=== PATIENT | male | born 1940 | race Caucasian/White ===

== ENCOUNTER → 2018-08-13 | Outpatient (CLI) | payer OTHER, MEDICARE ==
[~2018-08-13] MED LIST: IOPAMIDOL (ISOVUE-300) 100 ML BTL ONE
== END ==
LOC: FIMAGING 09:39
PROVIDERS: ATTEND Physician Assistant Medical
DX: R31.0 Gross hematuria (principal); N40.0 Benign prostatic hyperplasia without lower urinary tract symptoms
CPT/HCPCS: 74178; Q9967; 82565-PO

== ENCOUNTER 2018-10-01 00:28 | Observation (INO) | payer OTHER, MEDICARE ==
[2018-10-01] MEDS ORDERED: ONDANSETRON 4 MG/2 ML VIAL IVP ONE (00:51)
[2018-10-01] MEDS ORDERED: fentaNYL 100 MCG/2 ML INJ IVP ONE ×2 (00:51→01:38)
[2018-10-01] MEDS ORDERED: NS 1,000 ML IV ONE (00:51)
--- NOTE | 2018-10-01 00:57 | EDPHY ---
H & P Stated Complaint: LLQ abd pain with vomiting since 1600 Time Seen by Provider: 10/01/18 00:39 HPI/ROS: Chief Complaint: Abdominal pain HPI: 78-year-old male began having worsening abdominal pain starting at 5:00 a.m. This evening. Is in his left lower abdomen. Some nausea and vomiting. Some loose stools and constipation. Last normal bowel movement was 2 days ago. No blood or dark black. No blood in his vomit. No fevers or chills. No urinary urgency or frequency. He did have a cystoscopy performed a couple of weeks ago. Does not have a history of similar pain in the past. No abdominal surgeries. Has a history of hyperlipidemia, otherwise no past medical history. Pain is about a 6/10. ROS: 10 systems were reviewed and were negative except those elements noted in the HPI. PMH: Hyperlipidemia, BPH Social History: No smoking, no alcohol, no recreational drug use Family History: non-contributory Physical Exam: Gen: Awake, Alert, No Distress HEENT: Nose: no rhinorrhea Eyes: PERRLA, EOMI Mouth: Moist mucosa Neck: Supple, no JVD Chest: nontender, lungs clear to auscultation Heart: S1, S2 normal, no murmur Abd: Soft, lower abdominal tenderness, right greater than left, no guarding Back: no CVA tenderness, no midline tenderness Ext: no edema, non-tender Skin: no rash Neuro: CN II-XII intact, Sensation grossly intact, Strength 5/5 in bilateral upper and lower extremities - Personal History Current Tetanus/Diphtheria Vaccine: Unsure Current Tetanus Diphtheria and Acellular Pertussis (TDAP): Unsure - Medical/Surgical History Hx Asthma: No Hx Chronic Respiratory Disease: No Hx Diabetes: No Hx Cardiac Disease: No Hx Renal Disease: No Hx Cirrhosis: No Hx Alcoholism: No Hx HIV/AIDS: No Hx Splenectomy or Spleen Trauma: No Other PMH: left knee surgery - Social History Smoking Status: Former smoker Constitutional: Initial Vital Signs Temperature (C) 37.6 C 10/01/18 00:31 Heart Rate 64 10/01/18 00:31 Respiratory Rate 16 10/01/18 00:31 Blood Pressure 155/82 H 10/01/18 00:31 O2 Sat (%) 94 10/01/18 00:31 O2 Delivery Mode Room Air Allergies/Adverse Reactions: No Known Allergies Allergy (Verified 10/01/18 00:33) Home Medications: Medication Instructions Recorded Lipitor 10/01/18 Medical Decision Making - Diagnostics Imaging Results: CT abdomen and pelvis with contrast: Comparison: None Findings: No significant abnormality in the lung bases. Normal gallbladder. No biliary ductal dilatation. No hydronephrosis or symptomatic urinary calculus. Benign cyst in the left kidney. The solid organs and vasculature are otherwise normal. Inflammatory change medial to the cecum where there appears to be an appendicolith and a probable abnormal appendix. The base of the appendix is indistinct but may be dilated to 16 mm. No well-defined drainable abscess identified. Enlarged nodular prostate gland. There may be mild bladder wall thickening. The bladder is normal size. No bowel obstruction, free air or diverticulitis. Impression: Acute appendicitis. The margins of the appendix are indistinct. Cannot exclude early ruptured appendicitis. No definite abscess identified. ELECTRONICALLY SIGNED BY: Charles Dukes MD Oct 01, 2018 1:50:55 AM MDT ED Course/Re-evaluation: CT scan consistent with acute appendicitis. I have discussed with Dr. Rojo, general surgery. He will plan a appendectomy this morning. I have ordered surrounding Flagyl. Patient last ate at 5:00 a.m. In the afternoon. Last fluid intake about a tachypneic. He is currently comfortable. - Data Points Laboratory Results: Laboratory Results 10/01/18 00:48 10/01/18 00:48 10/01/18 10/01/18 10/01/18 01:07 01:05 00:48 WBC 9.77 10^3/uL H 10^3/uL (3.80-9.50) RBC 4.85 10^6/uL 10^6/uL (4.40-6.38) Hgb 15.3 g/dL g/dL (13.7-17.5) POC Hgb 14.6 gm/dL gm/dL (13.7-17.5) Hct 43.7 % % (40.0-51.0) POC Hct 43 % % (40-51) MCV 90.1 fL fL (81.5-99.8) MCH 31.5 pg pg (27.9-34.1) MCHC 35.0 g/dL g/dL (32.4-36.7) RDW 12.2 % % (11.5-15.2) Plt Count 160 10^3/uL 10^3/uL (150-400) MPV 11.8 fL H fL (8.7-11.7) Neut % (Auto) 82.3 % H % (39.3-74.2) Lymph % (Auto) 10.4 % L % (15.0-45.0) [place] % (Auto) 6.4 % % (4.5-13.0) Eos % (Auto) 0.2 % L % (0.6-7.6) Baso % (Auto) 0.2 % L % (0.3-1.7) Nucleat RBC Rel Count 0.0 % % (0.0-0.2) Absolute Neuts (auto) 8.03 10^3/uL H 10^3/uL (1.70-6.50) Absolute Lymphs (auto) 1.02 10^3/uL 10^3/uL (1.00-3.00) Absolute Monos (auto) 0.63 10^3/uL 10^3/uL (0.30-0.80) Absolute Eos (auto) 0.02 10^3/uL L 10^3/uL (0.03-0.40) Absolute Basos (auto) 0.02 10^3/uL 10^3/uL (0.02-0.10) Absolute Nucleated RBC 0.00 10^3/uL 10^3/uL (0-0.01) Immature Gran % 0.5 % % (0.0-1.1) Immature Gran # 0.05 10^3/uL 10^3/uL (0.00-0.10) POC Sodium 140 mEq/L mEq/L (135-145) Sodium POC Potassium 4.2 mEq/L mEq/L (3.3-5.0) Potassium POC Chloride 103 mEq/L mEq/L (97-110) Chloride Carbon Dioxide POC Total CO2 23 mEq/L mEq/L (22-31) Anion Gap POC BUN 21 mg/dL mg/dL (7-23) BUN Creatinine POC Creatinine 1.1 mg/dL mg/dL (0.7-1.3) Estimated GFR Glucose POC Glucose 127 mg/dL H mg/dL (70-100) Calcium Urine Color YELLOW Urine Appearance CLEAR Urine pH 6.0 (5.0-7.5) Ur Specific [place] 1.018 (1.002-1.030) Urine Protein NEGATIVE (NEGATIVE) Urine Ketones NEGATIVE (NEGATIVE) Urine Blood NEGATIVE (NEGATIVE) Urine Nitrate NEGATIVE (NEGATIVE) Urine Bilirubin NEGATIVE (NEGATIVE) Urine Urobilinogen NEGATIVE EU EU (0.2-1.0) Ur Leukocyte Esterase NEGATIVE (NEGATIVE) Urine Glucose NEGATIVE (NEGATIVE) 10/01/18 00:48 WBC RBC Hgb POC Hgb Hct POC Hct MCV MCH MCHC RDW Plt Count MPV Neut % (Auto) Lymph % (Auto) [place] % (Auto) Eos % (Auto) Baso % (Auto) Nucleat RBC Rel Count Absolute Neuts (auto) Absolute Lymphs (auto) Absolute Monos (auto) Absolute Eos (auto) Absolute Basos (auto) Absolute Nucleated RBC Immature Gran % Immature Gran # POC Sodium Sodium 138 mEq/L mEq/L (135-145) POC Potassium Potassium 4.5 mEq/L mEq/L (3.5-5.2) POC Chloride Chloride 104 mEq/L mEq/L (97-110) Carbon Dioxide 25 mEq/l mEq/l (22-31) POC Total CO2 Anion Gap 9 mEq/L mEq/L (6-14) POC BUN BUN 22 mg/dL mg/dL (7-23) Creatinine 1.1 mg/dL mg/dL (0.7-1.3) POC Creatinine Estimated GFR > 60 Glucose 114 mg/dL H mg/dL (70-100) POC Glucose Calcium 10.1 mg/dL mg/dL (8.5-10.4) Urine Color Urine Appearance Urine pH Ur Specific [place] Urine Protein Urine Ketones Urine Blood Urine Nitrate Urine Bilirubin Urine Urobilinogen Ur Leukocyte Esterase Urine Glucose Medications Given: Discontinued Medications Fentanyl (Sublimaze) 50 mcg IVP EDNOW ONE Stop: 10/01/18 00:52 Last Admin: 10/01/18 01:01 Dose: Not Given Fentanyl (Sublimaze) 50 mcg IVP EDNOW ONE Stop: 10/01/18 01:39 Last Admin: 10/01/18 01:42 Dose: 50 mcg Sodium Chloride (Ns) 1,000 mls @ 0 mls/hr IV ONCE ONE; Wide Open PRN Reason: Protocol Stop: 10/01/18 00:52 Last Admin: 10/01/18 01:00 Dose: 1,000 mls Ondansetron HCl (Zofran) 4 mg IVP EDNOW ONE Stop: 10/01/18 00:52 Last Admin: 10/01/18 01:01 Dose: 4 mg Point of Care Test Results: Chemistry 10/01/18 01:07 POC Sodium 140 mEq/L mEq/L (135-145) POC Potassium 4.2 mEq/L mEq/L (3.3-5.0) POC Chloride 103 mEq/L mEq/L (97-110) POC Total CO2 23 mEq/L mEq/L (22-31) POC BUN 21 mg/dL mg/dL (7-23) POC Creatinine 1.1 mg/dL mg/dL (0.7-1.3) POC Glucose 127 mg/dL H mg/dL (70-100) ISTAT H&H 10/01/18 01:07 POC Hgb 14.6 gm/dL gm/dL (13.7-17.5) POC Hct 43 % % (40-51) Departure - Departure Disposition: [facility] Inpatient Acute Clinical Impression: Acute appendicitis Condition: Fair Referrals: Caridad Jarquin MD [Primary Care Provider] - As per Instructions
[2018-10-01 01:01] LABS: PLATELET COUNT 160 10^3/uL (150-400)
[2018-10-01] MEDS ORDERED: IOPAMIDOL (ISOVUE-300) 100 ML BTL ONE (01:09)
[2018-10-01] MEDS ORDERED: ONDANSETRON 4 MG/2 ML VIAL IVP PRN ×2 (02:05→06:23)
[2018-10-01] MEDS ORDERED: LIDOCAINE 1% 300 MG/30 ML SDV ONE (02:46)
[2018-10-01] MEDS ORDERED: BUPIVACAINE 0.5% 30 ML SDV ONE (02:47)
[2018-10-01] MEDS: LR 1,000 ML IV SCH ×2 (03:34→08:11)
--- NOTE | 2018-10-01 05:50 | PDGENHP ---
History and Physical - Chief Complaint Right lower quadrant abdominal pain - History of Present Illness This is an 78-year-old gentleman who presents to the hospital with 2 days worth worsening abdominal discomfort turning into right lower quadrant pain several hours prior to of arrival. He tried to take some [id number] remedies without success. He came to the emergency room not be able to sleep at about 1 in the morning. White blood cell count was elevated at 9.77 with a left shift, CT scan showed an inflamed appendix with an appendicolith. History Information - Allergies/Home Medication List Allergies/Adverse Reactions: No Known Allergies Allergy (Verified 10/01/18 00:33) Home Medications: Lipitor 10/01/18 [Last Taken Unknown] I have personally reviewed and updated: family history, medical history, social history, surgical history - Past Medical History arthritis, hyperlipidemia Additional medical history: BPH - Surgical History Reports: no pertinent surgical hx - Family History Positive for: non-pertinent - Social History Smoking Status: Former smoker Alcohol Use: Occasionally Drug Use: None Review of Systems Review of Systems: ROS: 10pt was reviewed & negative except for what was stated in HPI & below Constitutional: Reports: fever, malaise. Denies: chills, weight loss Gastrointestinal: Reports: abdominal pain, abdominal distention Genitourinary: Reports: frequency Muscolosketal: Reports: joint pain (Knee) Physical Exam Physical Exam: Temp Pulse Resp BP Pulse Ox 36.7 C 79 16 121/71 H 94 10/01/18 04:46 10/01/18 04:46 10/01/18 04:46 10/01/18 04:46 10/01/18 04:46 O2 (L/minute) 2 Constitutional: appears nourished, uncomfortable Eyes: icteric sclera Ears, Nose, Mouth, Throat: moist mucous membranes, hearing normal Cardiovascular: regular rate and rhythym Peripheral Pulses: 2+: femoral (R), femoral (L), dorsalis-pedis (R), dorsalis- pedis (L) Respiratory: clear to auscultation, No no respiratory distress Gastrointestinal: tenderness, guarding (Right lower quadrant), No rebound, No distension Genitourinary: No no bladder fullness Skin: warm, normal color, no rashes or abrasions, No mottled Musculoskeletal: full muscle strength, normal joint ROM Neurologic: AAOx3, CN II-XII Intact Psychiatric: interacting appropriately Lymph, Heme, Immunologic: no cervical LAD, no supraclavicular LAD Lab Data & Imaging Review 10/01/18 00:48 10/01/18 00:48 WBC 9.77 10^3/uL (3.80-9.50) H 10/01/18 00:48 RBC 4.85 10^6/uL (4.40-6.38) 04 00:48 Hgb 15.3 g/dL (13.7-17.5) 10/01/18 00:48 POC Hgb 14.6 gm/dL (13.7-17.5) 10/01/18 01:07 Hct 43.7 % (40.0-51.0) 10/01/18 00:48 POC Hct 43 % (40-51) 10/01/18 01:07 MCV 90.1 fL (81.5-99.8) 10/01/18 00:48 MCH 31.5 pg (27.9-34.1) 10/01/18 00:48 MCHC 35.0 g/dL (32.4-36.7) 10/01/18 00:48 RDW 12.2 % (11.5-15.2) 10/01/18 00:48 Plt Count 160 10^3/uL (150-400) 10/01/18 00:48 MPV 11.8 fL (8.7-11.7) H 10/01/18 00:48 Neut % (Auto) 82.3 % (39.3-74.2) H 10/01/18 00:48 Lymph % (Auto) 10.4 % (15.0-45.0) L 10/01/18 00:48 [place] % (Auto) 6.4 % (4.5-13.0) 10/01/18 00:48 Eos % (Auto) 0.2 % (0.6-7.6) L 10/01/18 00:48 Baso % (Auto) 0.2 % (0.3-1.7) L 10/01/18 00:48 Nucleat RBC Rel Count 0.0 % (0.0-0.2) 10/01/18 00:48 Absolute Neuts (auto) 8.03 10^3/uL (1.70-6.50) H 10/01/18 00:48 Absolute Lymphs (auto) 1.02 10^3/uL (1.00-3.00) 10/01/18 00:48 Absolute Monos (auto) 0.63 10^3/uL (0.30-0.80) 10/01/18 00:48 Absolute Eos (auto) 0.02 10^3/uL (0.03-0.40) L 10/01/18 00:48 Absolute Basos (auto) 0.02 10^3/uL (0.02-0.10) 10/01/18 00:48 Absolute Nucleated RBC 0.00 10^3/uL (0-0.01) 10/01/18 00:48 Immature Gran % 0.5 % (0.0-1.1) 10/01/18 00:48 Immature Gran # 0.05 10^3/uL (0.00-0.10) 10/01/18 00:48 POC Sodium 140 mEq/L (135-145) 10/01/18 01:07 Sodium 138 mEq/L (135-145) 10/01/18 00:48 POC Potassium 4.2 mEq/L (3.3-5.0) 10/01/18 01:07 Potassium 4.5 mEq/L (3.5-5.2) 10/01/18 00:48 POC Chloride 103 mEq/L (97-110) 10/01/18 01:07 Chloride 104 mEq/L (97-110) 10/01/18 00:48 Carbon Dioxide 25 mEq/l (22-31) 10/01/18 00:48 POC Total CO2 23 mEq/L (22-31) 10/01/18 01:07 Anion Gap 9 mEq/L (6-14) 10/01/18 00:48 POC BUN 21 mg/dL (7-23) 10/01/18 01:07 BUN 22 mg/dL (7-23) 10/01/18 00:48 Creatinine 1.1 mg/dL (0.7-1.3) 10/01/18 00:48 POC Creatinine 1.1 mg/dL (0.7-1.3) 10/01/18 01:07 Estimated GFR > 60 10/01/18 00:48 Glucose 114 mg/dL (70-100) H 10/01/18 00:48 POC Glucose 127 mg/dL (70-100) H 10/01/18 01:07 Calcium 10.1 mg/dL (8.5-10.4) 10/01/18 00:48 Urine Color YELLOW 10/01/18 01:05 Urine Appearance CLEAR 10/01/18 01:05 Urine pH 6.0 (5.0-7.5) 10/01/18 01:05 Ur Specific [place] 1.018 (1.002-1.030) 10/01/18 01:05 Urine Protein NEGATIVE (NEGATIVE) 10/01/18 01:05 Urine Ketones NEGATIVE (NEGATIVE) 10/01/18 01:05 Urine Blood NEGATIVE (NEGATIVE) 10/01/18 01:05 Urine Nitrate NEGATIVE (NEGATIVE) 10/01/18 01:05 Urine Bilirubin NEGATIVE (NEGATIVE) 10/01/18 01:05 Urine Urobilinogen NEGATIVE EU (0.2-1.0) 10/01/18 01:05 Ur Leukocyte Esterase NEGATIVE (NEGATIVE) 10/01/18 01:05 Urine Glucose NEGATIVE (NEGATIVE) 10/01/18 01:05 Imaging Review: CT scan of the abdomen and pelvis personally reviewed on PACS demonstrating inflammation of the appendix and appendicular lift. No other significant pathologies noted. Assessment & Plan Assessment: Acute appendicitis (Acute) Plan: Laparoscopic appendectomy. Ceftriaxone and Flagyl have ready been given in the emergency room for treatment. Pain medication for pain control is adequate at this time. The risks benefits and alternatives to surgery have been outlined with the patient. The risks include but are not limited to bleeding, infection , injury to surrounding structures that could require further intervention. Benefits include pain and infection control. The patient verbalized his understanding prior to signing consent. All questions were addressed. Anticipate less than 24 hr hospital stay. Follow-up in the office in 1-2 weeks.
[2018-10-01] MEDS ORDERED: PROPOFOL 200 MG/20 ML VIAL ONE (06:00)
[2018-10-01] MEDS ORDERED: fentaNYL 100 MCG/2 ML INJ ONE (06:00)
[2018-10-01] MEDS ORDERED: HYDROCODONE/APAP 5/325 TAB PO PRN ×2 (06:00→06:23)
[2018-10-01] MEDS ORDERED: ONDANSETRON 4 MG/2 ML VIAL ONE (06:01)
--- NOTE | 2018-10-01 06:02 | PDANEPAE ---
ANE Past Medical History - Cardiovascular History Hx Hypertension: No Hx Arrhythmias: Yes Hx Chest Pain: No Hx Coronary Artery / Peripheral Vascular Disease: No Hx CHF / Valvular Disease: No Hx Palpitations: No - Pulmonary History Hx COPD: No Hx Asthma/Reactive Airway Disease: No Hx Recent Upper Respiratory Infection: No Hx Oxygen in Use at Home: No Hx Sleep Apnea: No - Endocrine History Hx Diabetes: No Hypothyroid: No Hyperthyroid: No Obesity: no - Renal History Hx Renal Disorders: No - Liver History Hx Hepatic Disorders: No - Neurological & Psychiatric Hx Hx Neurological and Psychiatric Disorders: No - Cancer History Hx Cancer: No - Congenital Disorder History Hx Congenital Disorders: No - GI History GERD: no - Chronic Pain History Chronic Pain: No - Surgical History Prior Surgeries: T & A ANE Review of Systems Review of Systems: - Exercise capacity Exercise capacity: >=4 METS ANE Patient History - Allergies Allergies/Adverse Reactions: No Known Allergies Allergy (Verified 10/01/18 00:33) - Home Medications Home Medications: Lipitor 10/01/18 [Last Taken Unknown] - NPO status NPO Since - Liquids (Date): 09/30/18 NPO Since - Liquids (Time): 19:00 NPO Since - Solids (Date): 09/30/18 NPO Since - Solids (Time): 17:00 - Anes Hx Anes Hx: no prior problems - Smoking Hx Smoking Status: Former smoker Marijuana use: No - Alcohol Use Alcohol Use: Occasionally - Family Anes Hx Family Anes Hx: neg - N/A ANE Labs/Vital Signs - Labs Result Diagrams: 10/01/18 00:48 10/01/18 00:48 - Vital Signs Blood Pressure: 121/71 Heart Rate: 79 Respiratory Rate: 16 O2 Sat (%): 94 Height: 175.26 cm Weight: 79.379 kg ANE Physical Exam - Airway Neck exam: FROM Mallampati Score: Class 2 Mouth exam: normal dental/mouth exam - Pulmonary Pulmonary: no respiratory distress, no rales or rhonchi, clear to auscultation - Cardiovascular Cardiovascular: regular rate and rhythym - ASA Status ASA Status: II ANE Anesthesia Plan Anesthesia Plan: general endotracheal anesthesia Total IV Anesthesia: No
[2018-10-01] MEDS ORDERED: DEXAMETHASONE 4 MG/ML VIAL ONE (06:03)
[2018-10-01] MEDS ORDERED: SUCCINYLCHOLINE CHLORIDE 200 MG/10 ML SYR IVP ONE (06:06)
[2018-10-01] MEDS ORDERED: ROCURONIUM 50 MG/5 ML VIAL ONE (06:06)
[2018-10-01] MEDS ORDERED: PHENYLEPHRINE HCL 100 MCG/ML SYR ONE (06:07)
[2018-10-01] MEDS ORDERED: LIDOCAINE 2% 5 ML SDV ONE (06:07)
--- NOTE | 2018-10-01 06:07 | POSTOPPROG ---
Post Op Note Date of Operation: 10/01/18 Surgeon: Ayden Rojo Stenotypist: None Anesthesiologist: Dr. Frederick Anesthesia: GET(General Endotracheal) Pre-op Diagnosis: Acute appendicitis Post-op Diagnosis: Same Procedure: Laparoscopic appendectomy Findings: Acute appendicitis Inf/Abcess present in the surg proc area at time of surgery?: Yes Depth: Organ Space EBL: Minimal Bowel Protocol: N/A Clean Closure Performed: N/A Specimen(s): Appendix to permanent pathology
[2018-10-01] MEDS ORDERED: LR 500 ML IV PRN (06:23)
[2018-10-01] MEDS ORDERED: fentaNYL 100 MCG/2 ML INJ IVP PRN (06:23)
[2018-10-01] MEDS ORDERED: ACETAMINOPHEN 500 MG TAB PO PRN (06:23)
[2018-10-01] MEDS ORDERED: PHENYLEPHRINE HCL 100 MCG/ML SYR IVP PRN (06:23)
[2018-10-01] MEDS ORDERED: NALOXONE HCL 0.4 MG/ML INJ IVP PRN (06:23)
[2018-10-01] MEDS ORDERED: PROMETHAZINE HCL 25 MG/ML INJ IVP PRN (06:23)
[2018-10-01] MEDS ORDERED: NEOSTIGMINE METHYLSULFATE 5 MG/5 ML SYR ONE (06:44)
[2018-10-01] MEDS ORDERED: GLYCOPYRROLATE 0.2 MG/1 ML VIAL ONE ×3 (06:45→06:49)
[2018-10-01] MEDS ORDERED: KETOROLAC 15 MG/1 ML SDV IVP ONE (07:04)
--- NOTE | 2018-10-01 07:05 | POSTANESTH ---
Post Anesthetic Evaluation Cardiovascular Status: Similar to Pre-Op Cond Respiratory Status: Normal, Stable Level of Consciousness/Mental Status: Can Participate in Eval Pain Control: Adequate, Prn Tx Ordered Nausea/Vomiting Control: Adequate, Prn Tx Ordered Complications Possibly Related to Anesthesia: None Noted
[2018-10-01] MEDS ORDERED: KETOROLAC 15 MG/1 ML SDV ONE (07:08)
--- NOTE | 2018-10-01 07:13 | GOP ---
[f rep st] OPERATIVE REPORT DATE OF OPERATION: SURGEON: Ayden Rojo MD ANESTHESIA: General endotracheal anesthesia was used. ANESTHESIOLOGIST: Dr. Connell PREOPERATIVE DIAGNOSIS: Acute appendicitis. POSTOPERATIVE DIAGNOSIS: Acute appendicitis. PROCEDURE PERFORMED: Laparoscopic appendectomy FINDINGS: Suppurative appendicitis with a broad base. SPECIMENS: Appendix permanent pathology. ESTIMATED BLOOD LOSS: Approximately 10 mL. INDICATIONS: This is an 78-year-old gentleman who presents to the hospital with right lower quadrant abdominal pain, leukocytosis, CT scan consistent with acute appendicitis. After informed consent, t he patient was brought to the operating room for definitive procedure. DESCRIPTION OF PROCEDURE: The patient was brought to the operating room. After induction of endotra cheal anesthesia in a supine position, abdomen prepped with chlorhexidine and draped sterilely. Time -out procedure was then performed according to institutional standards. Local anesthetic was infused in the skin and subcutaneous tissues of the trocar sites. An open supraumbilical trocar placement w as done in the standard fashion. The abdomen was insufflated to 15 torr with carbon dioxide. Workin g trocars were placed in the lower midline under direct visualization. The abdomen was inspected and there is suppurative fluid, but no perforation of the appendix. It is curled into the base of the a ppendix underneath the terminal ileum. The appendix was brought in the field of dissection. The mes entery was controlled with bipolar LigaSure energy and the appendix is divided flush with the base of the cecum using the Endo-YAEL 35 mm stapler. Hemostasis was assured. The appendix was placed into a n Endopouch for being brought out through the umbilical incision. All ports were removed. The abdom en was inspected again. Needle, instrument, and sponge counts were verified to be correct. The umbi lical port site is closed using 0 Vicryl and all ports were closed at the skin site using 4-0 Monocry l. Dermabond was applied. The patient was awakened, extubated, taken to recovery room in stable con dition. No immediate complications. COMPLICATIONS: None. /[id number]/MODL
[2018-10-01 11:19] VITALS: BP 136/69
--- NOTE | 2018-10-01 12:54 | ASMTCMCOM ---
CM Note CM Note Notes: 78 year old male admitted via ED with acute appendicitis. He has been medically cleared for discharge to home with no current needs identified. CM available should needs arise. Plan: Dc to home. Date Signed: 10/01/2018 12:53 PM Electronically Signed By:Raissa Floyd RN
--- NOTE | 2018-10-01 14:09 | GDS ---
[f rep st] DISCHARGE SUMMARY PROCEDURE: Laparoscopic appendectomy. PREOPERATIVE DIAGNOSES: 1. Hyperlipidemia. 2. Benign prostatic hypertrophy. HOSPITAL COURSE: The patient was admitted to [facility] after CT scan demonstrated r ight acute appendicitis. He had increased white blood cell count with a left shift. The patient was taken to the operating room for urgent appendectomy. Laparoscopic appendectomy was performed on the day of admission. The patient was advanced with his diet and activity. He took no pain medications postoperatively, was able to tolerate a diet, and no signs of complications from his hospital stay. DISCHARGE INSTRUCTIONS: The patient was then discharged to home with instructions to follow up with myself, Dr. Rojo. He will hopefully be able to follow up with Dr. Harjinder Jackson on the same day to en sure he is ready for an upcoming TURP surgery for BPH. All questions were addressed prior to patient leaving. In addition to his Lipitor, the patient was given Raymond for pain. He was instructed to ta ke this as needed, but more likely Tylenol or Motrin. The patient has verbalized understanding prior to discharge. /[id number]/MODL
== END 2018-10-01 13:09 | disposition home or self-care (01) ==
LOC: F1N 02:43
PROVIDERS: ADMIT Surgery; ATTEND Surgery
PROC: 0DTJ4ZZ Resection of Appendix, Percutaneous Endoscopic Approach (ICD-10-PCS; principal; 2018-10-01 06:00)
DX: K35.80 Unspecified acute appendicitis (principal); E86.9 Volume depletion, unspecified; E78.5 Hyperlipidemia, unspecified; N40.0 Benign prostatic hyperplasia without lower urinary tract symptoms; Z87.891 Personal history of nicotine dependence
CPT/HCPCS: 44970; 74177; 88304; 96361; 96374; 96375; 99285; G0378; J0330; J0696; J1100; J1885; J2270; J2370; J2405; J2704; J2710; J3010; Q9967; 82435-PO; 82565-PO; 82947-PO; 84132-PO; 84295-PO; 84520-PO; 85014-ER

== ENCOUNTER 2018-10-23 07:34 | Observation (INO) | payer OTHER, MEDICARE ==
--- NOTE | 2018-10-22 16:27 | PDHPUP ---
History & Physical Update H&P update statement: This history and physical update is based on an assessment of the patient which was completed after admission or registration (within 24 hours), but prior to the surgery/procedure. H&P update: H&P reviewed & patient examined, no change in patient's condition since H&P completed
--- NOTE | 2018-10-22 16:37 | GHP ---
[f rep st] PREOP HISTORY AND PHYSICAL DATE OF ADMISSION: 10/23/2018 ADMISSION DIAGNOSIS: Benign prostatic hypertrophy with urinary obstruction. HISTORY OF PRESENT ILLNESS: This is an 78-year-old gentleman who has recently had an appendectomy fo r acute appendicitis. He has done well from that. At the present time, he is admitted for a TURP. He has had recurrent infections in the past and treated with Cipro and amoxicillin. He has had a Uro Cuff procedure done in the office that shows he has obstruction with a Q-Max of 3.7 mL/second, voidi ng pressure of 199.1 cm of water pressure, voided volume of 153 mL and showing that he is obstructed. He has had a cystoscopy and the cystoscopy shows he has a large intravesical lobe of the prostate c ausing obstruction. Transrectal ultrasound of the prostate revealed that he had some calcifications of the prostate. At the intravesical lobe it was noted his prostate volume was 66.1 cubic centimeter s. At the present time, he is admitted for a TURP. Indication, complications associated with this w ere discussed. Written and verbal consent were obtained. He is admitted for the above procedure. PAST SURGICAL HISTORY: Appendectomy, cystoscopy. MEDICATIONS: Antibiotics occasionally. ALLERGIES: No known drug allergies. FAMILY HISTORY: Noncontributory. REVIEW OF SYSTEMS: Negative cardiac, respiratory, GI and endocrine. PHYSICAL EXAMINATION: VITAL SIGNS: Stable. CHEST: Clear. HEART: Regular rate and rhythm. ABDOM EN: Normal. No organomegaly, rebound or guarding. LOWER EXTREMITIES: Normal. He had a PSA history where his prostate volume was noted to be 66.1 g. His PSA as of 08/01/2018, was 6.009. In 2018, it was 6.34. It has been as high as 12.3 with a low 3.4. He has had a PSA density of 0.9. At the present time, he is admitted for transurethral resection of the prostate. Indication, complic ations, options discussed. Because of the large intravesical lobe of the prostate, I felt that minim ally invasive procedures of either Rezum or urolith were not good options and the TURP was to be plan farheen and performed. /[id number]/MODL
[2018-10-23] MEDS ORDERED: ceFAZolin 2 GM/DEXTROSE 100 ML IV ONE (07:43)
[2018-10-23] MEDS ORDERED: LR 1,000 ML IV ONE (07:45)
--- NOTE | 2018-10-23 09:02 | PDANEPAE ---
ANE History of Present Illness prostate ca and hypertrophy, here for TURP ANE Past Medical History - Cardiovascular History Hx Hypertension: No Hx Arrhythmias: No Hx Chest Pain: No Hx Coronary Artery / Peripheral Vascular Disease: No Hx CHF / Valvular Disease: No Hx Palpitations: No Cardiovascular History Comment: HLD - Pulmonary History Hx COPD: No Hx Asthma/Reactive Airway Disease: No Hx Recent Upper Respiratory Infection: No Hx Oxygen in Use at Home: No Hx Sleep Apnea: No Sleep Apnea Screening Result - Last Documented: Positive - Neurologic History Hx Cerebrovascular Accident: No Hx Seizures: No Hx Dementia: No - Endocrine History Hx Diabetes: No - Renal History Hx Renal Disorders: No - Liver History Hx Hepatic Disorders: No - Neurological & Psychiatric Hx Hx Neurological and Psychiatric Disorders: No - Cancer History Hx Cancer: No - Congenital Disorder History Hx Congenital Disorders: No - GI History Hx Gastrointestinal Disorders: No - Other Health History Other Health History: Enlarged prostate. Arthritis. R knee pain - Chronic Pain History Chronic Pain: No - Surgical History Prior Surgeries: 10/01/18 Appendectomy. 2009 L knee arthroscopy. T & A ANE Review of Systems Review of Systems: - Exercise capacity METS (RN): 5 METS ANE Patient History - Allergies Allergies/Adverse Reactions: No Known Allergies Allergy (Verified 10/01/18 00:33) - Home Medications Home Medications: Atorvastatin Calcium [Lipitor 10 mg (*)] 10 mg PO HS #0 10/01/18 [Last Taken 02/09] Herbals/Supplements -Info Only 1 ea PO DAILY 10/01/18 [Last Taken Unknown] Naproxen Sod/Diphenhydramine [Aleve Pm Caplet] 1 each PO HS PRN 10/01/18 [Last Taken Unknown] - NPO status NPO Since - Liquids (Date): 10/22/18 NPO Since - Liquids (Time): 22:00 NPO Since - Solids (Date): 10/22/18 NPO Since - Solids (Time): 17:00 - Smoking Hx Smoking Status: Former smoker - Family Anes Hx Family Hx Anesthesia Complications: None. ANE Labs/Vital Signs - Vital Signs Blood Pressure: 176/95 Heart Rate: 65 Respiratory Rate: 13 O2 Sat (%): 95 Height: 175.26 cm Weight: 76.657 kg ANE Physical Exam - Airway Neck exam: FROM Mallampati Score: Class 1 - Pulmonary Pulmonary: no respiratory distress, no rales or rhonchi - Cardiovascular Cardiovascular: regular rate and rhythym, no murmur, rub, or gallop - ASA Status ASA Status: II ANE Anesthesia Plan Anesthesia Plan: GA w LMA Total IV Anesthesia: No
[2018-10-23] MEDS ORDERED: LIDOCAINE 2% JELLY 20 ML (UROJECT) ONE (09:09)
[2018-10-23] MEDS ORDERED: DEXAMETHASONE 4 MG/ML VIAL ONE (09:15)
[2018-10-23] MEDS ORDERED: LIDOCAINE 2% 100 MG/5 ML SYR ONE (09:15)
[2018-10-23] MEDS ORDERED: ONDANSETRON 4 MG/2 ML VIAL ONE (09:15)
[2018-10-23] MEDS ORDERED: fentaNYL 100 MCG/2 ML INJ ONE ×2 (09:16→10:21)
[2018-10-23] MEDS ORDERED: PROPOFOL 200 MG/20 ML VIAL ONE ×2 (09:16→10:22)
[2018-10-23] MEDS ORDERED: oxyCODONE IR 5 MG TAB PO PRN (10:41)
[2018-10-23] MEDS ORDERED: METOCLOPRAMIDE 10 MG/2 ML VIAL IVP PRN (10:41)
[2018-10-23] MEDS ORDERED: ACETAMINOPHEN 500 MG TAB PO PRN (10:41)
[2018-10-23] MEDS ORDERED: MEPERIDINE 25 MG/0.5 ML AMP IVP PRN (10:41)
[2018-10-23] MEDS ORDERED: NALOXONE HCL 0.4 MG/ML INJ IVP PRN (10:41)
[2018-10-23] MEDS ORDERED: fentaNYL 100 MCG/2 ML INJ IVP PRN (10:41)
[2018-10-23] MEDS ORDERED: LR 500 ML IV PRN (10:41)
--- NOTE | 2018-10-23 10:47 | POSTANESTH ---
Post Anesthetic Evaluation Cardiovascular Status: Normal, Stable Respiratory Status: Normal, Stable Level of Consciousness/Mental Status: Can Participate in Eval, Mildly Sleepy, Arousable Pain Control: Adequate, Prn Tx Ordered Nausea/Vomiting Control: Adequate, Prn Tx Ordered Complications Possibly Related to Anesthesia: None Noted
--- NOTE | 2018-10-23 11:00 | GOP ---
[f rep st] OPERATIVE REPORT DATE OF OPERATION: 10/23/2018 SURGEON: Rohith Jackson MD NEUROSURGEON: Rohith aJckson MD ANESTHESIA: General anesthesia ANESTHESIOLOGIST: Heaven Malin DO PREOPERATIVE DIAGNOSIS: Benign prostatic hyperplasia with urinary obstruction and retention. POSTOPERATIVE DIAGNOSIS: Benign prostatic hyperplasia with urinary obstruction and retention. PROCEDURE PERFORMED: Transurethral resection of the prostate. FINDINGS: BPH / intravesical lobe SPECIMENS: Specimen will be sent to Pathology, and I will discuss the issues with his family. Will anticipate he be admitted for an overnight stay at the hospital. ESTIMATED BLOOD LOSS: Less than 50 cc. DESCRIPTION OF PROCEDURE: After undergoing general anesthesia and an appropriate time-out, and being prepped and draped in normal sterile fashion in dorsal lithotomy position, a resectoscope was passed under direct vision into the bladder, and he had +4 trabeculation of the bladder with a large intravesical lobe and lateral lobar hypertrophy. At that point, with bipolar instrumentation, I resected the intravesical lobe, and then resected the right lateral lobe, right portion of the posterior lobe, left lateral lobe, and left portion of the posterior lobe. His bladder was Ellik'd free of all chips and clots. Visualization revealed no residual chips or clots. Bladder had no trauma. Ureteral orifices preserved. External sphincter approximated at the midline symmetrically and verumontanum preserved. Had Urojet placed in the urethra. Had a 24-Gambian 3-way catheter passed in the bladder. Had 110 cc placed in the bladder with traction and irrigated clear. Specimens sent to Pathology. COMPLICATIONS ENCOUNTERED: None. He will be admitted for postoperative care. /[id number]/MODL MTDD
[2018-10-23] MEDS ORDERED: HYDROCODONE/APAP 5/325 TAB PO PRN (11:04)
[2018-10-23] MEDS ORDERED: ONDANSETRON 4 MG/2 ML VIAL IVP PRN (11:04)
[2018-10-23] MEDS ORDERED: OPIUM/BELLADONNA ALKALO SUPP PR PRN (11:04)
[2018-10-23] MEDS ORDERED: ZOLPIDEM TARTRATE 5 MG TAB PO PRN (11:04)
[2018-10-23] MEDS ORDERED: ACETAMINOPHEN 325 MG TAB PO PRN (11:04)
--- NOTE | 2018-10-23 11:04 | POSTOPPROG ---
Post Op Note Date of Operation: 10/23/18 (dictate) Surgeon: Rohith Jackson Anesthesiologist: Kimo Anesthesia: LMA Pre-op Diagnosis: bph Procedure: turp Inf/Abcess present in the surg proc area at time of surgery?: No EBL: 50-100 Drains: Other ([place]) Specimen(s): sent
[2018-10-23] MEDS ORDERED: NAPROXEN SOD PO PRN (11:07)
[2018-10-23] MEDS ORDERED: DIPHENHYDRAMINE PO PRN (11:07)
[2018-10-23] MEDS ORDERED: D5W 1/2 NS 1,000 ML IV SCH (11:15)
[2018-10-23] MEDS ORDERED: CALCIUM CARBONATE 500 MG CHEWABLE TAB PO PRN (18:33)
[2018-10-23] MEDS ORDERED: ATORVASTATIN CALCIUM 10 MG TAB PO SCH (21:00)
[2018-10-24 08:03] VITALS: BP 125/74
--- NOTE | 2018-10-24 11:50 | SOAPPROG ---
SOAP Progress Note Assessment/Plan: Assessment: BPH loc w urin obs/LUTS Acute POD # 1 TURP, no complaints, cath out, path pending Plan: DC home 10/24/18 11:48 Subjective: no complaints Objective: Vital Signs Temp Pulse Resp BP Pulse Ox 36.6 C 72 16 125/74 H 92 10/24/18 08:00 10/24/18 08:00 10/24/18 08:00 10/24/18 08:00 10/24/18 08:00 10/23/18 10/24/18 10/25/18 05:59 05:59 05:59 Intake Total 3926 2797 Output Total 2555 1500 Balance 1371 1297 Physical Exam - Physical Exam General Appearance: alert Neck: normal inspection Respiratory: No respiratory distress Cardiac/Chest: regular rate, rhythm Abdomen: soft Male Genitalia: other (cath out, no issues) Back: No CVA tenderness Skin: warm/dry Extremities: No calf tenderness, No Tommy's sign Neuro/Psych: oriented x 3 ICD10 Worksheet Patient Problems: Problems Problem Status Onset Acute appendicitis Acute BPH loc w urin obs/LUTS Acute
--- NOTE | 2018-10-24 12:04 | GDS ---
[f rep st] DISCHARGE SUMMARY ADMISSION DIAGNOSIS: Benign prostatic hypertrophy with urinary obstruction, chronic prostatitis. DISCHARGE DIAGNOSIS: Benign prostatic hypertrophy with urinary obstruction, chronic prostatitis. PROCEDURE: Transurethral resection of the prostate. HOSPITAL COURSE: This gentleman, on day of admission, had the above procedure performed. His cathet er was removed on postop day 1. He was discharged home and pathology pending. No complications. He will have follow up with me in 3 weeks. /[id number]/MODL
--- NOTE | 2018-10-24 12:36 | ASMTLACE ---
SHASHA Length of stay for Answers: 1 day current admission Acuity / Level of Answers: No Care: Did the patient have an inpatient admission? # of Emergency department Answers: 1-2 visits in the last 6 months Score: 2 Date Signed: 10/24/2018 12:34 PM Electronically Signed By:Yaritza Pineda RN
== END 2018-10-24 13:16 | disposition home or self-care (01) ==
LOC: F3N 07:34 → F3E 13:52
PROVIDERS: ADMIT Specialist; ATTEND Specialist
PROC: 0VT08ZZ Resection of Prostate, Via Natural or Artificial Opening Endoscopic (ICD-10-PCS; principal; 2018-10-23 09:00)
DX: N40.1 Benign prostatic hyperplasia with lower urinary tract symptoms (principal); N13.8 Other obstructive and reflux uropathy; R97.20 Elevated prostate specific antigen [PSA]; N41.1 Chronic prostatitis; R33.9 Retention of urine, unspecified; E78.5 Hyperlipidemia, unspecified; Z87.891 Personal history of nicotine dependence
CPT/HCPCS: 52601; 88305; J0690; J1100; J2001; J2405; J2704; J3010